=== PATIENT | male | born 1975 | race Caucasian/White ===

== ENCOUNTER 2018-07-15 08:18 | Emergency (ER) | payer OTHER ==
[2018-07-15] MEDS ORDERED: Albuterol 2.5 MG/3 ML NEB.SOL* (0.083%) INH ONE (09:27)
--- NOTE | 2018-07-15 09:29 | UC ---
General HPI - HPI Summary HPI Summary: States he has been coughing for weeks and wheezing and feels his chest rattle every night. Dry persistent cough. Feels like something is in the back of his throat but can't cough it up. Saw his PCP on 07/07 - they gave him a neb, inhaler and BP medication. Inhaler does help but tries not to take it too often. No fever. No vomiting or diarrhea. States he cough so hard he nearly passes out. No CP. Has put on 20 pounds since 02/18, no lower ext swelling. No hx of asthma, but remote smoker and recently started smoking for the past few months, quit last month. Meds: Reviewed States he is taking his BP meds - History of Current Complaint Chief Complaint: UCRespiratory Stated Complaint: SORE THROAT COUGH Time Seen by Provider: 07/15/18 09:19 Pain Intensity: 3 - Allergy/Home Medications Allergies/Adverse Reactions: Allergies Allergy/AdvReac Type Severity Reaction Status Date / Time Penicillins Allergy Unknown Verified 07/15/18 08:33 Reaction Details Home Medications: Home Medications Albuterol HFA INHALER* [Ventolin HFA Inhaler*] 1 puff INH Q4H PRN 07/15/18 [ History Confirmed 07/15/18] Olmesartan/Hydrochlorothiazide [Olmesartan Medoxomil/Hydr 20-12.5 mg] 1 tab PO 07/15/18 [History] PMH/Surg Hx/FS Hx/Imm Hx Previously Healthy: Yes Cardiovascular History: Hypertension Respiratory History: Asthma GI/ History: Gastroesophageal Reflux - Surgical History Surgical History: None - Social History Alcohol Use: Daily Substance Use Type: None Smoking Status (MU): Former Smoker Length of Time of Smoking/Using Tobacco: 20 Have You Smoked in the Last Year: Yes When Did the Patient Quit Smoking/Using Tobacco: 06/09/18 Review of Systems All Other Systems Reviewed And Are Negative: Yes Constitutional: Positive: Negative ENT: Positive: Sore Throat, Sinus Congestion Respiratory: Positive: Shortness Of Breath, Cough Physical Exam Triage Information Reviewed: Yes Appearance: Well-Appearing Vital Signs: Initial Vital Signs Temp 97.2 F 07/15/18 08:28 Pulse 95 07/15/18 08:28 Resp 18 07/15/18 08:28 BP 147/101 07/15/18 08:28 Pulse Ox 97 07/15/18 08:28 Vital Signs Reviewed: Yes ENT: Positive: Pharyngeal erythema, Nasal congestion, Other - PND Neck: Positive: Supple, Nontender Respiratory: Positive: Other: - diffuse b/l expiratory wheezing, poor aeration Cardiovascular: Positive: RRR, No Murmur Diagnostics - Radiology CXR Radiology Interpretation Completed By: Radiologist Summary of Radiographic Findings: No acute finding Course/Dx - Course Course Of Treatment: This is a 42 yr old who recently quit smoking again, comes in with persistent wheezing, SOB Assessment Albuterol neb tx given in CXR: negative Nontoxic, no respiratory distress Plan Continue Albuterol 2 puffs every 4 hours with spacer while you are still wheezing Start Medrol dose pack Start Azithromycin as prescribed Tessalon pearls as needed for cough Follow up with PCP regarding elevated blood pressure. You also may need a maintenance inhaler regimen - Diagnoses Provider Diagnosis: Asthma exacerbation, Bronchitis Discharge - Sign-Out/Discharge Documenting (check all that apply): Patient Departure All imaging exams completed and their final reports reviewed: Yes - Discharge Plan Condition: Fair Disposition: HOME Prescriptions: Azithromyxin CAROLA (NF) [Z-Carola (Zithromax) 250 mg tabs #6] 2 tab PO .TODAY, THEN 1 DAILY #6 tab Benzonatate CAP* [Tessalon 100 MG CAP*] 200 mg PO TID PRN #30 cap PRN Reason: Cough methylPREDNISolone [Medrol] 4 mg PO .SEE CAROLA INSTRUCTION #1 tab.ds.pk Spacer/Holding Chamber (NF) [Easivent CHAMBER (NF)] 1 applic INH Q4HR PRN #1 device PRN Reason: Cough Patient Education Materials: Acute Bronchitis (ED), Asthma (ED) Forms: *Work Release Referrals: Rehan Dockery NP [Primary Care Provider] - Additional Instructions: Continue Albuterol 2 puffs every 4 hours with spacer while you are still wheezing Start Medrol dose pack Start Azithromycin as prescribed Tessalon pearls as needed for cough Follow up with PCP regarding elevated blood pressure. You also may need a maintenance inhaler regimen If symptoms persist or worsen, return to urgent care or your PCP - Billing Disposition and Condition Condition: FAIR Disposition: Home
== END 2018-07-15 10:34 | disposition home or self-care (01) ==
LOC: UCEAST 08:18
DX: J45.901 Unspecified asthma with (acute) exacerbation (principal); J02.9 Acute pharyngitis, unspecified; I10 Essential (primary) hypertension; R09.81 Nasal congestion; Z79.899 Other long term (current) drug therapy; Z88.0 Allergy status to penicillin; Z87.891 Personal history of nicotine dependence
CPT/HCPCS: 71046; 99202; G0463

== ENCOUNTER 2018-12-29 07:25 | Emergency (ER) | payer OTHER ==
--- OUTSIDE RECORDS SUMMARY | 2018-12-29 07:31 | XMS REPORT | Continuity of Care Document ---
:1975 External Reference #:[id number] Author Name Rehan Dockery N.P. Address [address] [place] [id number] Problems Active Problems Provider Date Coleman's esophagus Rehan Dockery N.P. Onset: 12/14/2016 Ex-smoker Rehan Dockery N.P. Onset: 12/14/2016 Essential hypertension Rehan Dockery N.Ab[place] Onset: 11/25/2017 Hypercholesterolemia Rehan Dockery N.P. Onset: 11/25/2017 Social History Type Date Description Comments Sex Unknown Tobacco Use Start: Unknown End: Former Cigarette Smoker 1 Unknown Pack Daily ETOH Use Occasionally consumes alcohol Tobacco Use Start: Unknown End: Patient is a former smoker quit again 04/2018 Unknown Smoking Status Reviewed: 07/07/18 Patient is a former smoker quit again 2018 Allergies, Adverse Reactions, Alerts Active Allergies Reaction Severity Comments Date Penicillin 12/14/2016 Medications Active Medications SIG Qnty Indications Ordering Provider Date Zolpidem Tartrate take one tablet 30tabs Rehan Dockery, 11/26/2018 5mg by mouth at N.P. Tablets bedtime prn insomnia Albuterol Sulfate HFA 2 puffs four 1can Rehan Dockery, 07/07/2018 times a day as N.P. 108(90Base) mcg/Act needed Aerosol Olmesartan 1 by mouth every 90tabs Rehan Dockery, 07/07/2018 Medoxomil/Hydrochloro day N.P. thiazide 20-12.5mg Tablets Omeprazole 1 by mouth every 90caps Rehan Dockery, 12/14/[address] History Medications Escitalopram Oxalate take 1 tablet by 30tabs Rehan Dockery, 2018 - 10mg mouth every night N.P. 11/26/2018 Tablets at bedtime Immunizations CPT Code Status Date Vaccine Lot # [id number] Given 11/25/2018 Influenza Vac, Quadrivalent, Split, 0.5mL Dosage, Im Use [id number] Given 12/14/2016 Influenza Vac, Quadrivalent, Split, 0.5mL Dosage, [id number] Im Use [id number] Refused 12/20/2017 Influenza Vac, Quadrivalent, Split, 0.5mL Dosage, Im Use Vital Signs Date Vital Result Comment 11/26/2018 8:30am Body Temperature 97.0 F Weight 244.00 lb Heart Rate 99 /min BP Systolic 126 mmHg BP Diastolic 88 mmHg O2 % BldC Oximetry 96 % 07/21/2018 8:03am Body Temperature 97.7 F Weight 245.50 lb Heart Rate 93 /min BP Systolic 108 mmHg BP Diastolic 86 mmHg Height 70.5 inches 5'10.50" O2 % BldC Oximetry 95 % BMI (Body Mass Index) 34.7 kg/m2 Results Description No Information Available Procedures Date Code Description Status 07/07/2018 78825 Measure Blood Oxygen Level Multiple Determinations Completed 07/07/2018 79616 Airway Inhalation Treatment Completed Medical Devices Description No Information Available Encounters Type Date Location Provider Dx Diagnosis Office Visit 07/21/2018 Rehan Reddy, J30.9 Allergic rhinitis, 8:00a N.P. unspecified I10 Essential (primary) hypertension E66.9 Obesity, unspecified Z68.34 Body mass index (BMI) 34.0-34.9, adult Office Visit 07/07/2018 10:30a Rehan Reddy, E66.9 Obesity, unspecified N.P. J98.01 Acute bronchospasm Z13.31 Encounter for screening for depression I10 Essential (primary) hypertension Z68.35 Body mass index (BMI) 35.0-35.9, adult Assessments Date Code Description Provider 11/26/2018 I10 Essential (primary) hypertension Rehan Dockery, N.P. 11/26/2018 G47.9 Sleep disorder, unspecified Rehan Dockery, N.P. 07/21/2018 J30.9 Allergic rhinitis, unspecified Rehan Dockery, N.P. 07/21/2018 I10 Essential (primary) hypertension Rehan Dockery, N.P. 07/21/2018 E66.9 Obesity, unspecified Rehan Dockery, N.P. 07/21/2018 Z68.34 Body mass index (BMI) 34.0-34.9, adult Rehan Dockery N.P. 07/07/2018 E66.9 Obesity, unspecified Rehan Dockery N.P. 07/07/2018 J98.01 Acute bronchospasm Rehan Dockery N.P. 07/07/2018 Z13.31 Encounter for screening for depression Rehan Dockery N.P. 07/07/2018 I10 Essential (primary) hypertension Rehan Dockery N.P. 07/07/2018 Z68.35 Body mass index (BMI) 35.0-35.9, adult Rehan Dockery N.Mary. Plan of Treatment 11/26/2018 - Rehan Dockery N.P.I10 Essential (primary) hypertensionComments : stable with current meds. Cont same pt inst to monitor B/P at home/work 2-3 times per week and report abngoal: <140/90G47.9 Sleep disorder, unspecifiedComments:short term trial ambien 5mg q hssuggest he tries trazadone for longterm use based on abuse potential, dependence and SEhe will f/u after he returns form trip next monthinstructed to refrain from usingalcohol with ambienAllNew Medication:Zolpidem Tartrate 5 mg - take one tablet by mouth at bedtime prn insomnia Functional Status Description No Information Available Mental Status Description No Information Available Referrals Refer to Reason for Referral Status Appt Date [facility] persistent and worsening allergy Closed 2018 symptoms - [address] [place] [address] [phone]
[2018-12-29 07:38] VITALS: BP 149/96
--- NOTE | 2018-12-29 07:55 | UC ---
Respiratory Complaint HPI - HPI Summary HPI Summary: 43-year-old male comes in with a chief complaints of rhinorrhea chest congestion cough wheezing. Patient has been scuba diving and had sinus pressure and drainage for days. Then 2 days ago he started with ear pressure green rhinorrhea green sputum and chest congestion with wheezing. Patient does have a history of bronchospasm and has been seeing an cocktail server for that condition. He had an old albuterol inhaler that he uses which did help decrease the wheezing and helped his breathing. No fevers measured. - History of Current Complaint Chief Complaint: UCRespiratory Stated Complaint: wheezing AND PHLEM WITH ACHES Time Seen by Provider: 12/29/18 07:41 Pain Intensity: 6 - Allergies/Home Medications Allergies/Adverse Reactions: Allergies Allergy/AdvReac Type Severity Reaction Status Date / Time Penicillins Allergy Unknown Verified 07/15/18 08:33 Reaction Details PMH/Surg Hx/FS Hx/Imm Hx Previously Healthy: Yes Respiratory History: Asthma - Surgical History Surgical History: None - Family History Known Family History: Positive: Non-Contributory - Social History Alcohol Use: Daily Substance Use Type: None Smoking Status (MU): Former Smoker Length of Time of Smoking/Using Tobacco: 20 Have You Smoked in the Last Year: Yes When Did the Patient Quit Smoking/Using Tobacco: 06/09/18 Review of Systems All Other Systems Reviewed And Are Negative: Yes Constitutional: Positive: Negative Skin: Positive: Negative Eyes: Positive: Negative ENT: Positive: Sore Throat, Ear Ache, Nasal Discharge, Sinus Congestion, Sinus Pain/Tenderness Respiratory: Positive: Shortness Of Breath, Cough, Other - SEE HPI Cardiovascular: Positive: Negative Gastrointestinal: Positive: Negative Motor: Positive: Negative Neurovascular: Positive: Negative Musculoskeletal: Positive: Negative Neurological: Positive: Negative Psychological: Positive: Negative Is Patient Immunocompromised?: No Physical Exam Triage Information Reviewed: Yes Appearance: No Pain Distress, Well-Nourished, Ill-Appearing - MILD Vital Signs: Initial Vital Signs Temp 97.7 F 12/29/18 07:30 Pulse 86 12/29/18 07:30 Resp 18 12/29/18 07:30 BP 149/96 12/29/18 07:30 Pulse Ox 95 12/29/18 07:30 Vital Signs Reviewed: Yes Eye Exam: Normal Eyes: Positive: Conjunctiva Clear ENT: Positive: Pharyngeal erythema, Nasal congestion, Nasal drainage, TMs normal Neck: Positive: Supple Respiratory: Positive: No respiratory distress, Wheezing Cardiovascular: Positive: RRR Musculoskeletal: Positive: Strength Intact, ROM Intact Neurological: Positive: Alert Psychological: Positive: Age Appropriate Behavior Skin Exam: Normal Respiratory Course/Dx - Course Course Of Treatment: Will treat with an antibiotic due to the green rhinorrhea and the shortness of breath and asthma exacerbation at the infection is causing. I did not appreciate a consolidation today on the exam. We discussed chest x-ray but at this time we'll run a treat and if he gets better open oh need for chest x-ray however if he is not improving we'll need to consider getting a chest x-ray at that time. Patient's up follow-up his primary care doctor get reevaluated sooner if worse or any questions or concerns. - Differential Dx/Diagnosis Provider Diagnosis: Bronchitis with bronchospasm Discharge ED - Sign-Out/Discharge Documenting (check all that apply): Patient Departure All imaging exams completed and their final reports reviewed: No Studies - Discharge Plan Condition: Stable Disposition: HOME Prescriptions: Albuterol HFA INHALER* [Ventolin HFA Inhaler*] 2 puff INH Q4H PRN #1 mdi PRN Reason: Wheezing DOXYcycline CAP(*) [DOXYcycline 100MG CAP(*)] 100 mg PO BID #20 cap methylPREDNISolone [Medrol Dosepak 4 MG*] 0 mg PO .SEE CAROLA INSTRUCTION #1 carola Patient Education Materials: Acute Bronchitis (ED), Bronchospasm (ED) Forms: *Work Release Referrals: Rehan Dockery CAD ADMINISTRATOR [Primary Care Provider] - Additional Instructions: FOLLOW UP WITH YOUR DOCTOR IF NOT COMPLETELY IMPROVED. GET RECHECKED SOONER IF YOUR CONDITION WORSENS OR ANY QUESTIONS OR CONCERNS. - Billing Disposition and Condition Condition: STABLE Disposition: Home
== END 2018-12-29 08:01 | disposition home or self-care (01) ==
LOC: UCEAST 07:25
DX: J98.01 Acute bronchospasm (principal); J40 Bronchitis, not specified as acute or chronic; J45.909 Unspecified asthma, uncomplicated; J02.9 Acute pharyngitis, unspecified; H92.09 Otalgia, unspecified ear; R09.89 Other specified symptoms and signs involving the circulatory and respiratory systems; Z88.0 Allergy status to penicillin; Z87.891 Personal history of nicotine dependence
CPT/HCPCS: 99212; G0463

== ENCOUNTER 2020-09-01 20:00 | Inpatient (IN) ==
[2020-09-01] MEDS ORDERED: Heparin - STEMI 5,000 UNITS/ML 1 ml VIAL IV ONE ×2 (20:29→20:33)
[2020-09-01 20:48] LABS: ABS Eosinophils 0.3 10^3/ul (0-0.6); ABS Lymphocytes 2.3 10^3/ul (1.0-4.8); ABS Monocytes 0.8 10^3/ul (0-0.8); ABS Neutrophils 6.3 10^3/ul (1.5-7.7); Eosinophil % 3.3 %; Hematocrit 43 % (42-52); Hemoglobin 15.1 g/dL (14.0-18.0); Lymphocyte % 23.4 %; Mean Corpuscular HGB Conc 35 g/dL (31-36); Mean Corpuscular Hemoglobin 33 pg (27-31); Mean Corpuscular Volume 94 fL (80-94); Mean Platelet Volume 8.6 fL (7.4-10.4); Nucleated Red Blood Cells % 0.1; Platelet Count 217 10^3/uL (150-450); Red Blood Count 4.53 10^6 /uL (4.18-5.48); Red Cell Distribution Width 13 % (10-15); White Blood Count 9.7 10^3/uL (3.5-10.8)
[2020-09-01] MEDS ORDERED: Heparin 2 UNITS/ML 1000 mls 3,000 ML IV ONE (20:49)
[2020-09-01] MEDS ORDERED: Lidocaine 1% VIAL 10 MG/ML VIAL ONE (20:49)
[2020-09-01] MEDS ORDERED: Heparin 1,000 UNIT/ML 10 ml (10,000 UNITS) CATHLAB/DIALYSIS ONE (20:49)
[2020-09-01] MEDS ORDERED: Iohexol 350 (CONTRAST) 200 ML MDV IV ONE (20:49)
[2020-09-01] MEDS ORDERED: nitroGLYCERIN DRIP 25,000 MCG/250 ML BTL ONE (20:49)
[2020-09-01] MEDS ORDERED: VERAPAMIL 2.5 MG/ML 2 ML VIAL ** 5 mg/2 ml ONE (20:49)
[2020-09-01 21:03] LABS: Activated Partial Thrombo Time 28.8 seconds (26.0-38.0)
[2020-09-01 21:06] LABS: ALT 65 U/L (7-52); AST 34 U/L (13-39); Albumin 4.5 g/dL (3.2-5.2); Albumin/Globulin Ratio 1.3 (1-3); Alkaline Phosphatase 66 U/L (35-149); Anion Gap 10 mmol/L (2-11); Blood Urea Nitrogen 15 mg/dL (6-24); CO2 Carbon Dioxide 25 mmol/L (22-32); Calcium 9.2 mg/dL (8.6-10.3); Chloride 99 mmol/L (101-111); Creatine Kinase 152 U/L (10-223); EGFR African American 109.5 (>60); EGFR Non-African American 90.5 (>60); Globulin 3.5 g/dL (2-4); Glucose 95 mg/dL (70-100); LDL Cholesterol Direct 179 mg/dL; Potassium 3.4 mmol/L (3.5-5.0); Sodium 134 mmol/L (135-145)
[2020-09-01 21:10] LABS: CKMB ng/mL 2.5 ng/mL (0.6-6.3)
[2020-09-01 21:23] LABS: Troponin I 0.05 ng/mL (<0.03)
[2020-09-01] MEDS ORDERED: Midazolam 5 mg/5 ml VIAL 1 mg/ml 5 ml VIAL (5 mg) ONE (21:24)
[2020-09-01] MEDS ORDERED: fentaNYL 100 mcg/2 ml 50 MCG/ML VIAL ONE (21:24)
[2020-09-01] MEDS ORDERED: Bivalirudin 250 MG VIAL ONE ×2 (21:30→22:18)
[2020-09-01] MEDS ORDERED: Phenylephrine 40 mcg/mL 10mL (400mcg) SYRINGE ONE (21:49)
[2020-09-01] MEDS ORDERED: Atropine 0.1 MG/ML 10 ml SYR (1 mg) ONE (21:53)
[2020-09-01] MEDS ORDERED: Eptifibatide IV (Load dose) 2 MG/ML 10 ml VIAL ONE (22:02)
[2020-09-01] MEDS ORDERED: Heparin 2 UNITS/ML 1000 mls 1,000 ML IV ONE (22:08)
[2020-09-01] MEDS ORDERED: DOPamine 800 MG/250 ML IVPREM 800 MG/250 ML ML CENTR ONE (22:10)
[2020-09-01] MEDS ORDERED: Al Hydrox/Mg Hydrox/Simet LIQ 30 ML UDC PO ONE (22:58)
[2020-09-01] MEDS ORDERED: Eptifibatide Infusion @ 2 mcg/kg/min, max of 15 mg/hr (CrCl >/= 50) IV SCH (23:00)
[2020-09-01] MEDS: NS 0.9% 1000 ml BAG 1,000 ML IV SCH (23:03)
[2020-09-02] MEDS ORDERED: Potassium Chlor 20 meq TAB.ER PO ONE (00:21)
[2020-09-02] MEDS: NS 0.9% 1000 ml BAG 1,000 ML IV SCH (03:21)
[2020-09-02 05:49] LABS: Anion Gap 8 mmol/L (2-11); Blood Urea Nitrogen 13 mg/dL (6-24); CO2 Carbon Dioxide 24 mmol/L (22-32); Calcium 8.9 mg/dL (8.6-10.3); Chloride 102 mmol/L (101-111); Cholesterol 234 mg/dL; EGFR African American 132.8 (>60); EGFR Non-African American 109.8 (>60); Glucose 109 mg/dL (70-100); HDL Cholesterol 43.2 mg/dL; LDL Cholesterol 129 mg/dL; Potassium 4.3 mmol/L (3.5-5.0); Sodium 134 mmol/L (135-145); Triglycerides 308 mg/dL
[2020-09-02 06:32] LABS: ABS Basophils 0.1 10^3/ul (0-0.2); ABS Eosinophils 0.2 10^3/ul (0-0.6); ABS Lymphocytes 1.8 10^3/ul (1.0-4.8); ABS Monocytes 0.7 10^3/ul (0-0.8); ABS Neutrophils 7.4 10^3/ul (1.5-7.7); Eosinophil % 1.7 %; Hematocrit 39 % (42-52); Hemoglobin 13.9 g/dL (14.0-18.0); Lymphocyte % 17.4 %; Mean Corpuscular HGB Conc 36 g/dL (31-36); Mean Corpuscular Hemoglobin 34 pg (27-31); Mean Corpuscular Volume 95 fL (80-94); Mean Platelet Volume 8.5 fL (7.4-10.4); Nucleated Red Blood Cells % 0.1; Platelet Count 206 10^3/uL (150-450); Red Blood Count 4.12 10^6 /uL (4.18-5.48); Red Cell Distribution Width 13 % (10-15); White Blood Count 10.1 10^3/uL (3.5-10.8)
[2020-09-02 06:42] LABS: Troponin I 35.37 ng/mL (<0.03)
[2020-09-02 07:54] LABS: Magnesium 2.2 mg/dL (1.9-2.7); Phosphorus 3.9 mg/dL (2.5-5.0)
[2020-09-02] MEDS ORDERED: Perflutren Lipid Microsphere 3 ML VIAL ONE (08:46)
[2020-09-02 11:08] LABS: Hepatitis C Antibody Negative (Negative)
[2020-09-03 05:04] LABS: ABS Basophils 0.1 10^3/ul (0-0.2); ABS Eosinophils 0.4 10^3/ul (0-0.6); ABS Lymphocytes 2.4 10^3/ul (1.0-4.8); ABS Monocytes 0.8 10^3/ul (0-0.8); ABS Neutrophils 6.7 10^3/ul (1.5-7.7); Hematocrit 41 % (42-52); Hemoglobin 14.3 g/dL (14.0-18.0); Lymphocyte % 22.9 %; Mean Corpuscular HGB Conc 35 g/dL (31-36); Mean Corpuscular Hemoglobin 34 pg (27-31); Mean Corpuscular Volume 96 fL (80-94); Mean Platelet Volume 8.4 fL (7.4-10.4); Nucleated Red Blood Cells % 0.1; Platelet Count 194 10^3/uL (150-450); Red Blood Count 4.26 10^6 /uL (4.18-5.48); Red Cell Distribution Width 14 % (10-15); White Blood Count 10.5 10^3/uL (3.5-10.8)
[2020-09-03 05:21] LABS: Calcium 8.8 mg/dL (8.6-10.3); EGFR African American 118.5 (>60); EGFR Non-African American 97.9 (>60); Magnesium 2.1 mg/dL (1.9-2.7); Phosphorus 3.4 mg/dL (2.5-5.0); Potassium 4.1 mmol/L (3.5-5.0)
[2020-09-03 12:01] VITALS: BP 116/71
== END 2020-09-03 14:17 | disposition home or self-care (01) | DRG 247 ==
LOC: ED 20:00 → CHICATH 22:16 → ICU 22:49 → MEDTELE 09-02 13:04